=== PATIENT | male | born 1945 | race Caucasian/White ===

== ENCOUNTER 2018-07-30 10:19 | Day surgery (SDC) | payer MEDICARE ==
[~2018-07-30] VITALS: Ht 180.3 cm; Wt 100.6 kg
[2018-07-30] VITALS (12 sets, daily range): BP systolic 114–140; BP diastolic 56–89
[2018-07-30] MEDS ORDERED: normal saline 1000ml 1,000 ML IV SCH (10:50)
[2018-07-30] MEDS ORDERED: nitroGLYCERIN 0.4mg SUBLingual tab SL PRN (10:50)
[2018-07-30] MEDS ORDERED: diphenhydrAMINE 25mg capsule PO PRN (10:50)
[2018-07-30] MEDS ORDERED: LORazepam 0.5 MG tablet PO PRN (10:50)
[2018-07-30] MEDS ORDERED: LISI-600 PO (11:23)
[2018-07-30] MEDS ORDERED: ALLO100T PO (11:23)
[2018-07-30] MEDS ORDERED: AMLO-93 PO (11:23)
[2018-07-30] MEDS ORDERED: PRAV40TA3 PO (11:23)
[2018-07-30] MEDS ORDERED: FLO0.4C PO (11:23)
[2018-07-30] MEDS ORDERED: FINA5TAB11 PO (11:23)
[2018-07-30] MEDS ORDERED: ABAC1TAB14 PO (11:23)
[2018-07-30] MEDS ORDERED: LIDOcaine 1% (10mg/ml)w/preservative injection 20ml MDV ONE (12:29)
[2018-07-30] MEDS ORDERED: iohexol 350MG/ML 100ml bottle IV ONE (12:30)
[2018-07-30] MEDS ORDERED: iohexol 350 MG/ML 50ML vial IV ONE (12:30)
[2018-07-30] MEDS ORDERED: midazolam 2 mg/2 ml injection ONE (12:54)
[2018-07-30] MEDS ORDERED: fentaNYL/PF 50MCG/1 ML 2ML syringe ONE (12:54)
[2018-07-30] MEDS ORDERED: proCHLORperazine 10 MG/2 ml inj IV PRN (14:20)
[2018-07-30] MEDS ORDERED: HYDROcodone/acetaminophen 10/325mg tab PO PRN (14:20)
[2018-07-30] MEDS ORDERED: HYDROcodone/acetaminophen 5mg/325mg tablet PO PRN (14:20)
[2018-07-30] MEDS ORDERED: OXAZEpam 15mg capsule PO PRN (14:20)
[2018-07-30] MEDS ORDERED: normal saline 1000ml 1,000 ML IV ONE (14:20)
[2018-07-30] MEDS ORDERED: ondansetron/PF 4mg/2ml inj IV PRN (14:20)
== END 2018-07-30 20:00 | disposition home or self-care (01) ==
LOC: SSTAY O 10:19
PROVIDERS: ATTEND Internal Medicine Cardiovascular Disease
DX: I25.119 Atherosclerotic heart disease of native coronary artery with unspecified angina pectoris (principal); I10 Essential (primary) hypertension; E78.5 Hyperlipidemia, unspecified; Z79.899 Other long term (current) drug therapy; Z98.890 Other specified postprocedural states
CPT/HCPCS: 93005; 93458; 99152; 99153; A6257; J1644; J2001; J2250; J3010; J7030; Q0163; Q9967; A4620; C1760; C1769